=== PATIENT | male | born 1965 | race Hispanic/Latino ===

== ENCOUNTER 2023-01-06 13:21 | Observation (INO) | payer OTHER ==
[~2023-01-06] VITALS: Ht 167.6 cm; Wt 81.6 kg
[2023-01-06] MEDS ORDERED: SODIUM CHLORIDE 0.9% 1000ML 1,000 ML IV ONE (14:15)
[2023-01-06 14:24] LABS: BASOPHILS % 0.4 % (0.0-1.0); EOSINOPHILS # (AUTO) 0.1 (0.0-0.4); EOSINOPHILS % 0.7 % (0.0-6.0); HEMOGLOBIN 14.3 g/dL (14.0-18.0); LYMPHOCYTES # (AUTO) 1.7 (1.0-3.2); LYMPHOCYTES % 24.4 % (18.0-39.1); MEAN CORPUSCULAR HEMOGLOBIN 31.2 pg (28-32); MEAN CORPUSCULAR VOLUME 91.7 fL (81-99); MONOCYTES # (AUTO) 0.8 (0.2-0.8); MONOCYTES % 11.3 % (4.4-11.3); NEUTROPHILS # (AUTO) 4.3 (2.1-6.9); NEUTROPHILS % 62.5 % (38.7-80.0); PLATELET COUNT 166 x10e3/uL (140-360); RED BLOOD COUNT 4.58 x10e6/uL (4.3-5.7); RED CELL DISTRIBUTION WIDTH 13.7 % (11.7-14.4)
[2023-01-06 14:45] LABS: ALANINE AMINOTRANSFERASE 73 IU/L (0-55); ALBUMIN 4.6 g/dL (3.5-5.0); ALBUMIN/GLOBULIN RATIO 1.5 (0.8-2.0); ALKALINE PHOSPHATASE 102 IU/L (40-150); ANION GAP 20.6 mmol/L (8-16); BLOOD UREA NITROGEN 53 mg/dL (7-26); BUN/CREATININE RATIO 25 (6-25); CALCIUM 9.7 mg/dL (8.4-10.2); CARBON DIOXIDE 22 mmol/L (22-29); CHLORIDE 98 mmol/L (98-107); GLUCOSE 195 mg/dL (74-118); POTASSIUM 4.6 mmol/L (3.5-5.1); SODIUM 136 mmol/L (136-145)
[2023-01-06 14:48] LABS: CREATINE KINASE 130 IU/L (30-200); LIPASE 41 U/L (8-78)
[2023-01-06] MEDS ORDERED: ACETAMINOPHEN 325 MG TAB PO ONE (15:00)
[2023-01-06] MEDS ORDERED: ONDANSETRON HCL INJ 2MG/ML 2ML 2 MG/ML VIAL IV PRN ×2 (16:30→22:00)
[2023-01-06] MEDS: SODIUM CHLORIDE 0.9% 1000ML 1,000 ML IV SCH ×2 (16:56→23:07)
[2023-01-06 19:57] VITALS: BP 128/76; PULSE 80; RESP 20; TEMP 97.6; O2SAT 100
[2023-01-06 20:00] VITALS: BP 128/76; PULSE 80; RESP 20; TEMP 97.6; O2SAT 100
[2023-01-06] MEDS ORDERED: LOSARTAN POTASS50 MG PO (20:24)
[2023-01-06] MEDS ORDERED: JARDIANCE25 MG PO (20:24)
[2023-01-06] MEDS ORDERED: TRULICITY3 MG/0.5 M SQ (20:24)
[2023-01-06] MEDS ORDERED: METFORMIN HCL1000 MG PO (20:24)
[2023-01-06] MEDS ORDERED: ESOMEPRAZOLE MA40 MG PO (20:24)
[2023-01-06] MEDS ORDERED: ASPIRIN EC81 MG PO (21:05)
[2023-01-06] MEDS ORDERED: MELATONIN 3 MG TAB PO PRN (22:00)
[2023-01-06] MEDS ORDERED: ACETAMINOPHEN/CODEINE 300MG - 30MG TAB PO PRN (22:00)
[2023-01-06] MEDS ORDERED: HYDROCODONE/APAP 5MG-325MG TAB PO PRN (22:00)
[2023-01-06] MEDS ORDERED: DOCUSATE SODIUM 100 MG CAP PO PRN (22:00)
[2023-01-06] MEDS ORDERED: DEXTROSE 50% SYRINGE 50 ML IV PRN (22:00)
[2023-01-07] VITALS: BP 128/71; PULSE 70; RESP 20; TEMP 97.8; O2SAT 100
[2023-01-07 03:53] VITALS: BP 133/83; PULSE 67; RESP 18; TEMP 97.9; O2SAT 100
[2023-01-07] MEDS: SODIUM CHLORIDE 0.9% 1000ML 1,000 ML IV SCH ×4 (05:36→12:33)
[2023-01-07 06:31] LABS: BASOPHILS % 0.6 % (0.0-1.0); EOSINOPHILS # (AUTO) 0.1 (0.0-0.4); EOSINOPHILS % 1.6 % (0.0-6.0); HEMOGLOBIN 13.6 g/dL (14.0-18.0); LYMPHOCYTES % 20.6 % (18.0-39.1); MEAN CORPUSCULAR HEMOGLOBIN 31.1 pg (28-32); MEAN CORPUSCULAR HGB CONC 33.2 g/dL (31-35); MEAN CORPUSCULAR VOLUME 93.6 fL (81-99); MONOCYTES # (AUTO) 0.6 (0.2-0.8); MONOCYTES % 12.3 % (4.4-11.3); NEUTROPHILS # (AUTO) 3.2 (2.1-6.9); NEUTROPHILS % 64.3 % (38.7-80.0); PLATELET COUNT 131 x10e3/uL (140-360); RED BLOOD COUNT 4.38 x10e6/uL (4.3-5.7); RED CELL DISTRIBUTION WIDTH 13.4 % (11.7-14.4)
[2023-01-07 06:56] LABS: ANION GAP 12.3 mmol/L (8-16); CALCIUM 8.9 mg/dL (8.4-10.2); CREATININE, SERUM 0.76 mg/dL (0.72-1.25); POTASSIUM 4.3 mmol/L (3.5-5.1)
[2023-01-07] MEDS: INSULIN REGULAR, HUMAN 100 UNIT/1 ML SQ SCH ×2 (07:30→12:32)
[2023-01-07 08:28] VITALS: BP 145/80; PULSE 64; RESP 18; TEMP 98.2; O2SAT 99
[2023-01-07 08:44] VITALS: BP 145/80; PULSE 64; RESP 18; TEMP 98.2; O2SAT 99
[2023-01-07] MEDS ORDERED: ASPIRIN 81 MG ENTERIC COATED PO SCH (09:00)
[2023-01-07 12:12] VITALS: BP 131/86; PULSE 67; RESP 18; TEMP 98.1; O2SAT 100
[2023-01-07] MEDS ORDERED: MECLIZINE HCL12.5 MG PO (15:49)
[2023-01-07 15:57] VITALS: BP 128/79; PULSE 73; RESP 18; TEMP 98.2; O2SAT 100
[2023-01-07] MEDS ORDERED: ONDANSETRON HCL 4 MG ORAL DISINTEGRATING TAB PO PRN (16:45)
== END 2023-01-07 17:10 | disposition home or self-care (01) ==
LOC: ER 13:40 → ERHOLD 16:22 → MED/SURG2 20:07
PROVIDERS: ADMIT Internal Medicine; ATTEND Internal Medicine
DX: N17.9 Acute kidney failure, unspecified (principal); E86.0 Dehydration; E11.65 Type 2 diabetes mellitus with hyperglycemia; Z79.84 Long term (current) use of oral hypoglycemic drugs; Z79.85 Long-term (current) use of injectable non-insulin antidiabetic drugs; R42 Dizziness and giddiness; R53.1 Weakness; I10 Essential (primary) hypertension; Z11.52 Encounter for screening for COVID-19; Z79.899 Other long term (current) drug therapy; Z79.82 Long term (current) use of aspirin
CPT/HCPCS: 0223U; 36415 ×2; 70450; 71045; 76770; 80048; 80053; 82550; 82948 ×2; 83036; 83690; 84484; 85025 ×2; 93005; 99284; G0378 ×2; J7030 ×2

== ENCOUNTER 2024-03-06 12:31 | Observation (INO) | payer BC, OTHER ==
[~2024-03-06] VITALS: Ht 167.6 cm; Wt 81.6 kg
[~2024-03-06 12:31] MED LIST: ASPIRIN EC81 MG PO; ESOMEPRAZOLE MA40 MG PO; JARDIANCE25 MG PO; LOSARTAN POTASS50 MG PO; MECLIZINE HCL12.5 MG PO; METFORMIN HCL1000 MG PO; TRULICITY3 MG/0.5 M SQ
[2024-03-06 13:20] VITALS: TEMP 98.4
[2024-03-06 13:57] LABS: BASOPHILS % 0.4 % (0.0-1.0); EOSINOPHILS # (AUTO) 0.1 (0.0-0.4); EOSINOPHILS % 0.7 % (0.0-6.0); HEMATOCRIT 47.3 % (38.2-49.6); HEMOGLOBIN 15.9 g/dL (14.0-18.0); LYMPHOCYTES % 26.5 % (18.0-39.1); MEAN CORPUSCULAR HEMOGLOBIN 31.3 pg (28-32); MEAN CORPUSCULAR HGB CONC 33.6 g/dL (31-35); MEAN CORPUSCULAR VOLUME 93.1 fL (81-99); MONOCYTES # (AUTO) 0.9 (0.2-0.8); MONOCYTES % 12.4 % (4.4-11.3); NEUTROPHILS # (AUTO) 4.3 (2.1-6.9); NEUTROPHILS % 58.6 % (38.7-80.0); PLATELET COUNT 201 x10e3/uL (140-360); RED BLOOD COUNT 5.08 x10e6/uL (4.3-5.7); RED CELL DISTRIBUTION WIDTH 13.8 % (11.7-14.4); WHITE BLOOD COUNT 7.39 x10e3/uL (4.8-10.8)
[2024-03-06 14:11] LABS: ALBUMIN 4.7 g/dL (3.5-5.0); ALBUMIN/GLOBULIN RATIO 1.3 (0.8-2.0); ANION GAP 20.7 mmol/L (8-16); BILIRUBIN,TOTAL 0.8 mg/dL (0.2-1.2); CALCIUM 10.4 mg/dL (8.4-10.2); CREATININE, SERUM 2.74 mg/dL (0.72-1.25); POTASSIUM 4.7 mmol/L (3.5-5.1); TOTAL PROTEIN 8.3 g/dL (6.5-8.1)
[2024-03-06] MEDS: SODIUM CHLORIDE 0.9% 1000ML 1,000 ML IV STA ×2 (14:15→14:16)
[2024-03-06 14:19] LABS: TROPONIN I 0.008 ng/mL (0-0.300)
[2024-03-06] MEDS: KETOROLAC TROMETHAMINE 30 MG/ML VIAL IV STA (14:32)
[2024-03-06] MEDS ORDERED: ONDANSETRON HCL INJ 2MG/ML 2ML 2 MG/ML VIAL IV PRN (15:45)
[2024-03-06] MEDS ORDERED: DEXTROSE 50% SYRINGE 50 ML IV PRN (15:45)
[2024-03-06] MEDS: SODIUM CHLORIDE 0.9% 1000ML 1,000 ML IV SCH (16:17)
[2024-03-06] MEDS: INSULIN LISPRO 100 UNIT/1 ML 3ML VIAL SQ SCH (16:30)
[2024-03-06 18:30] VITALS: PULSE 75; RESP 16
[2024-03-06 20:30] VITALS: BP 142/76; PULSE 74; RESP 18; TEMP 97.7; O2SAT 100
[2024-03-06 20:45] VITALS: BP 147/89; PULSE 75; RESP 16; TEMP 98.4; O2SAT 100
[2024-03-06 20:50] LABS: TROPONIN I 0.007 ng/mL (0-0.300)
[2024-03-06] MEDS ORDERED: LANTUS 3ML100 UNITS/ SC (20:59)
[2024-03-06 21:00] VITALS: BP 147/89; PULSE 75; RESP 16; TEMP 98.4; O2SAT 100
[2024-03-07] VITALS: BP 123/71; PULSE 69; RESP 20; TEMP 97.6; O2SAT 99
[2024-03-07 04:00] VITALS: BP 131/73; PULSE 72; RESP 20; TEMP 97.8; O2SAT 100
[2024-03-07 05:51] LABS: BASOPHILS % 0.5 % (0.0-1.0); EOSINOPHILS # (AUTO) 0.1 (0.0-0.4); EOSINOPHILS % 2.2 % (0.0-6.0); HEMOGLOBIN 12.7 g/dL (14.0-18.0); LYMPHOCYTES # (AUTO) 1.1 (1.0-3.2); LYMPHOCYTES % 30.7 % (18.0-39.1); MEAN CORPUSCULAR HEMOGLOBIN 31.6 pg (28-32); MEAN CORPUSCULAR HGB CONC 33.4 g/dL (31-35); MEAN CORPUSCULAR VOLUME 94.5 fL (81-99); MONOCYTES # (AUTO) 0.6 (0.2-0.8); MONOCYTES % 16.3 % (4.4-11.3); NEUTROPHILS # (AUTO) 1.8 (2.1-6.9); NEUTROPHILS % 49.5 % (38.7-80.0); PLATELET COUNT 125 x10e3/uL (140-360); RED BLOOD COUNT 4.02 x10e6/uL (4.3-5.7); RED CELL DISTRIBUTION WIDTH 13.5 % (11.7-14.4); WHITE BLOOD COUNT 3.68 x10e3/uL (4.8-10.8)
[2024-03-07 06:20] LABS: ALBUMIN 3.4 g/dL (3.5-5.0); ALBUMIN/GLOBULIN RATIO 1.4 (0.8-2.0); ANION GAP 12.4 mmol/L (8-16); BILIRUBIN,TOTAL 0.5 mg/dL (0.2-1.2); CALCIUM 8.5 mg/dL (8.4-10.2); CREATININE, SERUM 0.81 mg/dL (0.72-1.25); POTASSIUM 4.4 mmol/L (3.5-5.1); TOTAL PROTEIN 5.9 g/dL (6.5-8.1)
[2024-03-07 06:54] LABS: TROPONIN I 0.001 ng/mL (0-0.300)
[2024-03-07 07:50] VITALS: BP 143/84; PULSE 58; RESP 19; TEMP 97.6; O2SAT 98
[2024-03-07 09:10] VITALS: BP 143/84; PULSE 58; RESP 19; TEMP 97.6; O2SAT 98
[2024-03-07 11:18] VITALS: BP 150/78; PULSE 68; RESP 18; TEMP 98.2; O2SAT 97
== END 2024-03-07 15:55 | disposition home or self-care (01) ==
LOC: ER 12:57 → ERHOLD 15:41 → INTOOBSV 15:41 → MED/SURG3 20:07
PROVIDERS: ADMIT Internal Medicine; ATTEND Internal Medicine
DX: N17.9 Acute kidney failure, unspecified (principal); E86.0 Dehydration; R51.9 Headache, unspecified; I10 Essential (primary) hypertension; E11.9 Type 2 diabetes mellitus without complications; Z79.4 Long term (current) use of insulin; Z79.85 Long-term (current) use of injectable non-insulin antidiabetic drugs; Z79.84 Long term (current) use of oral hypoglycemic drugs; Z11.52 Encounter for screening for COVID-19; Z79.899 Other long term (current) drug therapy; Z79.82 Long term (current) use of aspirin
CPT/HCPCS: 36415 ×2; 71045; 80053 ×2; 82550 ×2; 82948 ×2; 84484 ×2; 85025 ×2; 93005; 99284; G0378 ×2; J1885; J7030 ×2; U0002